=== PATIENT | female | born 1950 | race Caucasian/White ===

== ENCOUNTER 2017-06-21 12:57 | Outpatient (CLI) | payer MEDICARE ==
--- NOTE | 2017-06-21 16:29 | RAD ---
CHEST TWO VIEWS: History: Dyspnea. Comparison: None. FINDINGS: Atherosclerosis of the aorta. Normal cardiac silhouette. The pulmonary vessels and hilum are normal. Costophrenic angles are clear. Lungs are hyperinflated, without consolidation or mass. No pneumothora x or osseous abnormality. IMPRESSION: 1. Hyperinflation. 2. Atherosclerosis. POS: [facility]
== END 2017-06-21 12:58 | disposition home or self-care (01) ==
LOC: RAD 12:57
PROVIDERS: ATTEND Internal Medicine Critical Care Medicine
DX: R06.00 Dyspnea, unspecified (principal); I70.90 Unspecified atherosclerosis; R91.8 Other nonspecific abnormal finding of lung field
CPT/HCPCS: 71046

== ENCOUNTER 2017-07-26 13:04 | Outpatient (CLI) | payer MEDICARE | END 2017-07-26 13:05 | disposition home or self-care (01) | LOC: BICMAMMO 13:04 | PROVIDERS: ATTEND Nurse Practitioner Family | DX: Z12.31 Encounter for screening mammogram for malignant neoplasm of breast (principal); I10 Essential (primary) hypertension | CPT/HCPCS: 77063; 77067 ==

== ENCOUNTER 2019-07-05 12:50 | Inpatient (IN) | payer MEDICARE, OTHER ==
[2019-07-05] MEDS ORDERED: methylPREDNISolone Sod Succ/PF 125 MG/2 ML VIAL ONE (13:33)
[2019-07-05] MEDS ORDERED: Albuterol 200 PUFF (6.7GM INHALER) ONE (13:35)
[2019-07-05 13:50] LABS: Actual Bicarbonate (HCO3a) 30.5 mEq/L (22-28); Analyzer IN Cardio ER; Base Excess (BEa) 0.7 mEq/L (-2.0 to +3.0); Calcium, Ionized 1.23 mmol/L (1.12-1.30); Carboxyhemoglobin (COHb) 2.6 gm% (0.0-3.0); O2 Tension (PaO2), arterial 70.2 mmHg (> 80.0); Potassium - ABG Lab 4.38 mmol/L (3.70-5.30)
[2019-07-05 13:53] LABS: CO2 Tension 72.1 mmHg (35.0-45.0); pH, Arterial 7.24 (7.35-7.45)
[2019-07-05 14:00] LABS: #Basophils 0.1 thou/uL (0.0-0.2); #Eosinphils 0.1 thou/uL (0.0-0.7); #Lymphocytes 1.2 thou/uL (1.20-3.40); #Monocytes 0.7 thou/uL (0.11-0.59); #Neutrophils 7.7 thou/uL (1.40-6.50); %Basophils 0.7 % (0.0-1.0); %Eosinophils 0.8 % (0.0-10.0); %Monocytes 6.8 % (0.0-10.0); %Neutrophils 79.8 % (42.0-75.0); Hemoglobin 15.5 g/dL (12.0-16.0); Mean Corpuscular HGB CONC 30.6 g/dL (32.0-36.0); Mean Corpuscular Hemoglobin 30.7 pg (27.0-31.0); Platelet Count 236 thou/uL (130-400); RBC Distribution Width 13.6 % (11.5-14.5); Red Blood Cell (RBC) Count 5.05 mill/uL (4.20-5.40); White Blood Cell (WBC) Count 9.7 thou/uL (4.8-10.8)
[2019-07-05 14:14] LABS: ALT (SGPT) 21 U/L (8-55); AST (SGOT) 15 U/L (5-34); Albumin 4.1 g/dL (3.4-4.8); Alkaline Phosphatase 140 U/L (40-110); Anion Gap 12 mmol/L (10-20); BUN (Urea Nitrogen) 10 mg/dL (9.8-20.1); Bilirubin, Total 0.6 mg/dL (0.2-1.2); Calc. Creatinine Clearance 0 mL/min (70-130); Calcium 9.5 mg/dL (7.8-10.44); Carbon Dioxide 34 mmol/L (23-31); Chloride 100 mmol/L (98-107); Estimated GFR-MDRD Greater than 90; Globulin 2.7 g/dL (2.4-3.5); Glucose 119 mg/dL (80-115); Protein, Total 6.8 g/dL (6.0-8.3); Sodium 141 mmol/L (136-145)
--- NOTE | 2019-07-05 14:30 | RAD ---
PORTABLE CHEST 1 VIEW: Date: 07/05/2019 Time: 1352 hours HISTORY: Shortness of breath. FINDINGS: Comparison made with exam of 06/21/2017. The heart size is normal. The aorta is tortuous. The lungs are well expanded without lobar consolidat ion, pneumothoraces, nnamdi pulmonary edema, or pleural effusions. IMPRESSION: No acute process. POS: [facility]
[2019-07-05] MEDS ORDERED: Guaifenesin DM 100-10/5 ML UDCUP PO PRN (16:42)
[2019-07-05] MEDS ORDERED: Bisacodyl 10 MG SUPP PR PRN (16:42)
[2019-07-05] MEDS ORDERED: Senokot S 8.6-50 MG TAB PO PRN (16:42)
[2019-07-05] MEDS ORDERED: Ondansetron PF 4 MG/2 ML Vial IVP PRN (16:42)
[2019-07-05] MEDS ORDERED: PROVENTIL INHALER 6.7 G (200 INHALATIONS) INH SCH (16:45)
[2019-07-05 17:04] LABS: Troponin I 0.016 ng/mL (< 0.028)
--- NOTE | 2019-07-05 18:07 | HP ---
REASON FOR ADMISSION: Acute respiratory failure with hypoxia, COPD exacerbation , rule out COVID. HISTORY OF PRESENTING ILLNESS: The patient gives history of developing shortness of breath at home. She states she was short of breath from last 2 days, which has been progressively getting worse. This morning, she got worse and EMS was summoned. Her saturations were 50% on room air. She was given nebulizations and placed on 2 L oxygen by nasal cannula, which promptly brought the saturations up to 93%. Has no fever. The patient states she did not get exposed to anyone with coronavirus. The patient is a bit lethargic, but says she had wheezing, but no altered expectoration of sputum as such. Ms. Marshall also mentions that she had quit smoking, but started back again as her roommate was smoking. PAST MEDICAL AND SURGICAL HISTORY: 1. History of COPD. 2. Hypertension. 3. Appendectomy. 4. Hysterectomy. 5. Depression. 6. Dyslipidemia. 7. Hypothyroidism. CURRENT MEDICATIONS: The patient is on: 1. Norvasc 5 mg daily. 2. Levothyroxine 100 mcg daily. 3. Symbicort inhaler 160/4.5 mcg two puffs twice daily. 4. Lipitor 10 mg daily. 5. Paroxetine 40 mg daily. ALLERGIES: ALLERGIC TO TYLENOL AND CODEINE. SHE IS ALSO ALLERGIC TO [place]. PERSONAL HISTORY: She started smoking 1 pack a day from the last few months, before that had quit per the patient. Does not abuse alcohol or drugs. The patient says she ambulates by herself. FAMILY HISTORY: Mother is still living. Father at the age of 53 years, he had [place]. CODE STATUS: Full. Surrogate decision maker is her daughter, Ms. Shelbi Bennett. REVIEW OF SYSTEMS: CONSTITUTIONAL: Negative for weight loss or gain, ability to conduct usual activities. SKIN: Negative for rash, itching. EYES: Negative for double vision, pain. ENT/MOUTH: Negative for nose bleeding, neck stiffness, pain, tenderness. CARDIOVASCULAR: Negative for palpitations, dyspnea on exertion, orthopnea. RESPIRATORY: Negative for cough, hemoptysis, fever or night sweats. GASTROINTESTINAL: Negative for poor appetite, abdominal pain, heartburn, nausea , vomiting, constipation, or diarrhea. GENITOURINARY: Negative for urgency, frequency, dysuria, nocturia. MUSCULOSKELETAL: Negative for pain, swelling. NEUROLOGIC/PSYCHIATRIC: Negative for anxiety, depression. ALLERGY/IMMUNOLOGIC: Negative for skin rash, bleeding tendency. PHYSICAL EXAMINATION: GENERAL: The patient is a 68-year-old female who is currently lethargic, but responds to verbal questions. VITAL SIGNS: Blood pressure 140/66, pulse 84 per minute, respiratory rate 20 per minute, temperature 98.3 degrees Fahrenheit, saturating 98% on 2 L nasal cannula and was 85% on room air on arrival here. NECK: Supple. No elevated JVP. EYES: Extraocular muscles intact. Pupils reacting to light. ORAL CAVITY: Mucous membranes are dry. No exudates or congestion. CARDIOVASCULAR SYSTEM: S1 and S2 heard regular rhythm. RESPIRATORY SYSTEM: Air entry 1+ bilateral. Scattered wheezes plus bilateral rhonchi plus bilateral. ABDOMEN: Soft bowel sounds heard. No tenderness, rigidity, or guarding. EXTREMITIES: No peripheral edema or calf tenderness. VASCULAR SYSTEM: Peripheral pulses 1+ bilateral. No ischemic ulcerations or gangrene. CENTRAL NERVOUS SYSTEM: No gross focal deficits noted. The patient is lethargic, but responds well to verbal questions. PSYCHIATRIC: No hallucinations or delusions. LABORATORY DATA: Chest x-ray done shows no acute process. There is no infiltrate. EKG done shows normal sinus rhythm at 81 beats per minute. Influenza A and B antigens are negative. Serum bicarb is 34, BUN 10, creatinine 0.6, and serum glucose 119. Liver enzymes, AST and ALT within normal limits, alkaline phosphatase is 140. Troponin-I x2 is negative. BNP is 44. Albumin is 4.1. A blood gas done in the ER shows a pH of 7.24, pCO2 of 72, PO2 of 70. White count of 9, hemoglobin and hematocrit 15 and 50, platelet count is 236, and MCV is 100 with 79% neutrophils, 12% lymphocytes. CLINICAL IMPRESSION AND PLAN: The patient will be admitted to medical floor. She has been tested for COVID-19 due to her respiratory issues. She has not had any fever or exposure to people with quiroz. The patient is lethargic and will obtain more accurate information in the morning when her CO2 levels drop and her mind gets more clarity in the morning. She currently has acute respiratory failure with hypoxia, which is corrected with 2 L nasal cannula oxygen. She has history of chronic obstructive pulmonary disease and has current exacerbation. She had quit smoking and has restarted it. She will be on albuterol inhaler q.4 h., Solu- Medrol 40 mg IV q.6 h., ceftriaxone 2 g daily, and we will continue her Symbicort as before. We will also continue her home dose of Norvasc, Lipitor, paroxetine, and Protonix. We will consult Dr. Ohara who is covering for Dr. Pritchett, her cabin worker. The patient has low probability for COVID, but again the patient is not fully oriented and is not able to answer all questions accurately and will try to ascertain more information in the morning. Job ID: [id number] MTDD
[2019-07-05] MEDS ORDERED: Mometasone 200 MCG/Formoterol 5 MCG 120 PUFF INHALER INH SCH (18:30)
[2019-07-05 18:37] VITALS: BMI 27.1
[2019-07-05] MEDS: methylPREDNISolone Sod Succ 40 MG VIAL IVP SCH ×2 (19:32→23:03)
[2019-07-05] MEDS: cefTRIAXone\\ROCEPHIN 2 GM in Sodium Chloride 0.9% 100 ML IVPB SCH (19:32)
[2019-07-05] MEDS: Albuterol 200 PUFF (6.7GM INHALER) INH SCH ×2 (19:32→23:03)
[2019-07-05] MEDS: Atorvastatin Calcium 10 MG TAB PO SCH (19:33)
[2019-07-06] MEDS: Albuterol 200 PUFF (6.7GM INHALER) INH SCH ×6 (03:05→21:30)
[2019-07-06] MEDS: methylPREDNISolone Sod Succ 40 MG VIAL IVP SCH (05:33)
[2019-07-06] MEDS: Levothyroxine 150 MCG TAB PO SCH (05:33)
[2019-07-06] MEDS: Mometasone 200 MCG/Formoterol 5 MCG 120 PUFF INHALER INH SCH ×2 (05:34→18:59)
[2019-07-06] MEDS ORDERED: Levothyroxine 175 MCG TAB PO SCH (06:00)
[2019-07-06] MEDS: Enoxaparin Sodium 40 MG/0.4 ML SYRINGE SC SCH (08:18)
[2019-07-06] MEDS: PARoxetine 20 MG TAB PO SCH (08:19)
[2019-07-06] MEDS: Amlodipine 10 MG TAB PO SCH (08:19)
[2019-07-06 08:26] LABS: Hemoglobin 15.6 g/dL (12.0-16.0); Mean Corpuscular HGB CONC 29.2 g/dL (32.0-36.0); Mean Corpuscular Hemoglobin 29.6 pg (27.0-31.0); Mean Platelet Volume 9.7 fL (7.4-10.4); Platelet Count 253 thou/uL (130-400); RBC Distribution Width 13.4 % (11.5-14.5); Red Blood Cell (RBC) Count 5.28 mill/uL (4.20-5.40); White Blood Cell (WBC) Count 12.2 thou/uL (4.8-10.8)
[2019-07-06 08:42] LABS: ALT (SGPT) 20 U/L (8-55); AST (SGOT) 10 U/L (5-34); Albumin 3.9 g/dL (3.4-4.8); Alkaline Phosphatase 131 U/L (40-110); Anion Gap 14 mmol/L (10-20); BUN (Urea Nitrogen) 12 mg/dL (9.8-20.1); Bilirubin, Total 0.5 mg/dL (0.2-1.2); Calc. Creatinine Clearance 76 mL/min (70-130); Calcium 9.7 mg/dL (7.8-10.44); Carbon Dioxide 31 mmol/L (23-31); Chloride 97 mmol/L (98-107); Estimated GFR-MDRD 74; Glucose 328 mg/dL (80-115); Potassium 4.7 mmol/L (3.5-5.1); Protein, Total 6.9 g/dL (6.0-8.3); Sodium 137 mmol/L (136-145)
[2019-07-06 10:15] LABS: Band 1 % (5-11); Lymphocytes 6 % (21-51); MDiff Complete? YES; Monocytes 2 % (0-10); Neutrophil 91 % (42-75); Platelet Morphology Comment Appears Adequate; Polychromasia SLIGHT = 2-3 cells (100X) (0-2/hpf); Vacuoles SLIGHT
--- NOTE | 2019-07-06 11:21 | PDOC.HOSPP ---
- Subjective Encounter Date: 07/06/19 Encounter Time: 08:20 Subjective: is sitting on bed, no sob is ambulating in room says she slept good last night - Objective Vital Signs & Weight: Vital Signs (12 hours) Temp Pulse Resp BP BP BP Pulse Ox 07/06/19 08:19 85 135/67 07/06/19 08:00 96.8 F L 94 18 135/67 96 07/06/19 06:07 98.2 F 85 20 152/74 H 95 Weight Weight 153 lb 6 oz I&O: 07/05/19 07/06/19 07/07/19 06:59 06:59 06:59 Intake Total 200 500 Balance 200 500 Result Diagrams: 07/06/19 08:02 07/06/19 08:02 Hospitalist ROS - Medication Medications: Active Medications Generic Name Dose Route Start Last Admin Trade Name Freq PRN Reason Stop Dose Admin Albuterol Sulfate 2 puff 07/05/19 18:30 07/06/19 05:33 Proventil Hfa INH 2 puff [id number] SOBIA Administration Amlodipine Besylate 10 mg 07/06/19 09:00 07/06/19 08:19 Norvasc PO 10 mg DAILY SOBIA Administration Atorvastatin Calcium 10 mg 07/05/19 21:00 07/05/19 19:33 Lipitor PO 10 mg HS SOBIA Administration Enoxaparin Sodium 40 mg 07/06/19 09:00 07/06/19 08:18 Lovenox SC 40 mg 0900 SOBIA Administration Ceftriaxone Sodium 2 gm/ 100 mls @ 200 mls/hr 07/05/19 16:45 07/05/19 19:32 Sodium Chloride IVPB 100 mls Q24HR SOBIA Administration Levothyroxine Sodium 150 mcg 07/06/19 06:00 07/06/19 05:33 Synthroid PO 150 mcg 0600 SOBIA Administration Methylprednisolone Sodium Succinate 40 mg 07/05/19 18:00 07/06/19 05:33 Solu-Medrol IVP 40 mg Q6HR SOBIA Administration Mometasone Furoate/Formoterol Fumar 2 puff 07/06/19 06:30 07/06/19 05:34 Dulera 200 Mcg/5 Mcg Inhaler INH 2 inhaler BID-RT SOBIA Administration Pantoprazole Sodium 40 mg 07/06/19 09:00 07/06/19 08:19 Protonix PO 40 mg DAILY SOBIA Administration Paroxetine HCl 40 mg 07/06/19 09:00 07/06/19 08:19 Paxil PO 40 mg DAILY SOBIA Administration - Exam General Appearance: awake alert Eye: PERRL, anicteric sclera ENT: no oropharyngeal lesions, moist mucosa Neck: supple, no JVD Heart: RRR, no murmur Respiratory: no wheezes, no rales, rhonchi Gastrointestinal: soft, non-tender, non-distended, normal bowel sounds Extremities: no cyanosis, no edema Neurological: cranial nerve grossly intact, no focal deficits Psychiatric: normal affect, A&O x 3 Hosp A/P (1) COPD exacerbation Code(s): J44.1 - CHRONIC OBSTRUCTIVE PULMONARY DISEASE W (ACUTE) EXACERBATION Status: Acute (2) Acute respiratory failure with hypoxia Code(s): J96.01 - ACUTE RESPIRATORY FAILURE WITH HYPOXIA Status: Acute (3) DM type 2 (diabetes mellitus, type 2) Status: Chronic Qualifiers: Diabetes mellitus exterminator helper insulin use: without half-way use (4) HTN (hypertension) Code(s): I10 - ESSENTIAL (PRIMARY) HYPERTENSION Status: Chronic Qualifiers: Hypertension type: essential hypertension Qualified Code(s): I10 - Essential (primary) hypertension (5) Dyslipidemia Code(s): E78.5 - HYPERLIPIDEMIA, UNSPECIFIED Status: Chronic (6) Hypothyroidism Code(s): E03.9 - HYPOTHYROIDISM, UNSPECIFIED Status: Chronic Qualifiers: Hypothyroidism type: unspecified Qualified Code(s): E03.9 - Hypothyroidism , unspecified - Plan patient says she was in isolation with a friend of hers from may 29 except for yesterday when she went to drive through pharmacy no exposures to covid 19 on prednsione, alb inh, ceftriaxone add metformin tid continue synthroid, lipitor and norvasc hemostable unlikely to have covid 19, await results
[2019-07-06] MEDS ORDERED: Dextrose 5% in Water 1,000 ML IV PRN (11:22)
[2019-07-06] MEDS ORDERED: HumaLOG 300 UNITS/3 ML VIAL SC PRN ×2 (11:22→19:50)
[2019-07-06] MEDS ORDERED: Dextrose 50% Abboject 50 ML SYRINGE SLOW IVP PRN (11:22)
--- NOTE | 2019-07-06 11:29 | CON ---
DATE OF CONSULTATION: 07/06/2019 This is 50 minutes of time, of that time, greater than 50% spent with the patient and/or the patient's unit in the hospital. REASON FOR CONSULTATION: COPD exacerbation. HISTORY OF PRESENT ILLNESS: The patient is a 68-year-old female, who was admitted yesterday because of hypoxemia. She has been put on rule out COVID status, although she has had no fever, cough, or congestion. She does smoke a lot at home. She has a history of COPD and is followed by Dr. Pritchett. She had been on oxygen in the past, but has not been wearing it lately. PAST MEDICAL HISTORY: 1. Chronic obstructive pulmonary disease. 2. Hypertension. 3. Hypothyroidism. 4. Hyperlipidemia. 5. Depression. PAST SURGICAL HISTORY: Hysterectomy and appendectomy. MEDICATIONS: Prior to admission, 1. Symbicort. 2. Levothyroxine. 3. Norvasc. 4. Lipitor. 5. Paroxetine. ALLERGIES: TYLENOL, CODEINE. SOCIAL HISTORY: Smokes one pack per day. FAMILY MEDICAL HISTORY: Unremarkable except for heart disease. REVIEW OF SYSTEMS: Twelve-point review of systems is otherwise negative. PHYSICAL EXAMINATION: VITAL SIGNS: Temperature 98.2, pulse 85, respirations 20, sat 95% on 2 L, blood pressure 150/74. HEENT: Unremarkable. NECK: No adenopathy or JVD. CHEST: No wheezing or rhonchi. CARDIAC: S1, S2. Regular. ABDOMEN: Soft. EXTREMITIES: No edema. DIAGNOSTIC DATA: Chest x-ray shows no mass, effusion, or infiltrate. LABORATORY DATA: White blood cell count 12, hematocrit 53.6, and platelet count 253. Sodium 137, potassium 4.7, chloride 97, CO2 of 31, BUN 12, creatinine 0.7, glucose 328. ASSESSMENT: 1. Chronic obstructive pulmonary disease with exacerbation. 2. Tobacco abuse. 3. Doubt COVID pneumonia. PLAN: This patient hopefully will rule out as soon as possible. She would benefit from nebulization therapy far more than the metered-dose inhaler that she is currently taking. Agree with the IV steroids. I think she would be a candidate to go home on home oxygen as soon as tomorrow if everything else turns out okay. Job ID: [id number]
[2019-07-06] MEDS: cefTRIAXone\\ROCEPHIN 2 GM in Sodium Chloride 0.9% 100 ML IVPB SCH (16:23)
[2019-07-06] MEDS: metFORMIN 500 MG TAB PO SCH ×2 (16:23→19:24)
[2019-07-06] MEDS: Atorvastatin Calcium 10 MG TAB PO SCH (19:24)
[2019-07-07] MEDS: Albuterol 200 PUFF (6.7GM INHALER) INH SCH ×6 (01:44→21:30)
[2019-07-07] MEDS: Levothyroxine 150 MCG TAB PO SCH (05:27)
[2019-07-07] MEDS: Mometasone 200 MCG/Formoterol 5 MCG 120 PUFF INHALER INH SCH ×2 (05:46→18:04)
[2019-07-07] MEDS: metFORMIN 500 MG TAB PO SCH ×4 (07:47→20:09)
[2019-07-07] MEDS: predniSONE 20 MG TAB PO SCH (07:47)
[2019-07-07] MEDS: PARoxetine 20 MG TAB PO SCH (07:47)
[2019-07-07] MEDS: Amlodipine 10 MG TAB PO SCH (07:48)
[2019-07-07] MEDS: Enoxaparin Sodium 40 MG/0.4 ML SYRINGE SC SCH (07:49)
[2019-07-07 08:14] LABS: ALT (SGPT) 34 U/L (8-55); AST (SGOT) 26 U/L (5-34); Albumin 3.6 g/dL (3.4-4.8); Alkaline Phosphatase 107 U/L (40-110); Anion Gap 10 mmol/L (10-20); BUN (Urea Nitrogen) 13 mg/dL (9.8-20.1); Bilirubin, Total 0.4 mg/dL (0.2-1.2); Calc. Creatinine Clearance 87 mL/min (70-130); Calcium 9.2 mg/dL (7.8-10.44); Carbon Dioxide 35 mmol/L (23-31); Chloride 99 mmol/L (98-107); Estimated GFR-MDRD 87; Globulin 2.8 g/dL (2.4-3.5); Glucose 81 mg/dL (80-115); Potassium 4.2 mmol/L (3.5-5.1); Protein, Total 6.4 g/dL (6.0-8.3); Sodium 140 mmol/L (136-145)
--- NOTE | 2019-07-07 11:29 | PDOC.HOSPP ---
- Subjective Encounter Date: 07/07/19 Encounter Time: 07:15 Subjective: no trouble breathing is ambulating in room no chest pain or palp - Objective Vital Signs & Weight: Vital Signs (12 hours) Temp Pulse Resp BP BP Pulse Ox 07/07/19 08:00 98.2 F 78 16 132/69 92 L 07/07/19 07:48 78 158/68 H 07/07/19 01:44 78 96 Weight Weight 153 lb 6 oz I&O: 07/06/19 07/07/19 07/08/19 06:59 06:59 06:59 Intake Total 200 2400 Balance 200 2400 Result Diagrams: 07/06/19 08:02 07/07/19 07:37 Additional Labs: Accuchecks 07/07/19 07/06/19 07/06/19 10:23 19:37 16:49 POC Glucose 140 H 230 H 168 H Hospitalist ROS - Medication Medications: Active Medications Generic Name Dose Route Start Last Admin Trade Name Freq PRN Reason Stop Dose Admin Albuterol Sulfate 2 puff 07/05/19 18:30 07/07/19 10:39 Proventil Hfa INH 2 puff [id number] SOBIA Administration Amlodipine Besylate 10 mg 07/06/19 09:00 07/07/19 07:48 Norvasc PO 10 mg DAILY SOBIA Administration Atorvastatin Calcium 10 mg 07/05/19 21:00 07/06/19 19:24 Lipitor PO 10 mg HS SOBIA Administration Enoxaparin Sodium 40 mg 07/06/19 09:00 07/07/19 07:49 Lovenox SC 40 mg 0900 SOBIA Administration Ceftriaxone Sodium 2 gm/ 100 mls @ 200 mls/hr 07/05/19 16:45 07/06/19 16:23 Sodium Chloride IVPB 100 mls Q24HR SOBIA Administration Insulin Human Lispro 0 units 07/06/19 11:22 07/06/19 17:02 Humalog SC 3 unit .AGGRESSIVE SLIDING PRN Administration Aggressive Correctional Scale Insulin Human Lispro 0 units 07/06/19 19:50 07/06/19 21:31 Humalog SC 2 units .BEDTIME SLIDING SC PRN Administration Bedtime Correctional Scale Levothyroxine Sodium 150 mcg 07/06/19 06:00 07/07/19 05:27 Synthroid PO 150 mcg 0600 SOBIA Administration Metformin HCl 500 mg 07/06/19 15:00 07/07/19 07:47 Glucophage PO 500 mg TID SOBIA Administration Mometasone Furoate/Formoterol Fumar 2 puff 07/06/19 06:30 07/07/19 05:46 Dulera 200 Mcg/5 Mcg Inhaler INH 2 inhaler BID-RT SOBIA Administration Pantoprazole Sodium 40 mg 07/06/19 09:00 07/07/19 07:48 Protonix PO 40 mg DAILY SOBIA Administration Paroxetine HCl 40 mg 07/06/19 09:00 07/07/19 07:47 Paxil PO 40 mg DAILY SOBIA Administration Prednisone 20 mg 07/07/19 08:00 07/07/19 07:47 Prednisone PO 20 mg QAM-WM SOBIA Administration - Exam General Appearance: awake alert Eye: PERRL, anicteric sclera ENT: no oropharyngeal lesions, moist mucosa Neck: symmetric, no JVD Heart: RRR, no murmur Respiratory: no wheezes, no rales, rhonchi Gastrointestinal: soft, non-tender, non-distended, normal bowel sounds Extremities: no cyanosis, no edema Neurological: cranial nerve grossly intact, no focal deficits Psychiatric: normal affect, A&O x 3 Hosp A/P (1) COPD exacerbation Code(s): J44.1 - CHRONIC OBSTRUCTIVE PULMONARY DISEASE W (ACUTE) EXACERBATION Status: Acute (2) Acute respiratory failure with hypoxia Code(s): J96.01 - ACUTE RESPIRATORY FAILURE WITH HYPOXIA Status: Acute (3) DM type 2 (diabetes mellitus, type 2) Status: Chronic Qualifiers: Diabetes mellitus chcf insulin use: without tank terminal gauger use (4) HTN (hypertension) Code(s): I10 - ESSENTIAL (PRIMARY) HYPERTENSION Status: Chronic Qualifiers: Hypertension type: essential hypertension Qualified Code(s): I10 - Essential (primary) hypertension (5) Dyslipidemia Code(s): E78.5 - HYPERLIPIDEMIA, UNSPECIFIED Status: Chronic (6) Hypothyroidism Code(s): E03.9 - HYPOTHYROIDISM, UNSPECIFIED Status: Chronic Qualifiers: Hypothyroidism type: unspecified Qualified Code(s): E03.9 - Hypothyroidism , unspecified - Plan patient says she was in isolation with a friend of hers from may 29 except for yesterday when she went to drive through pharmacy no exposures to covid 19 on prednsione, alb inh, ceftriaxone add metformin tid continue synthroid, lipitor and norvasc hemostable unlikely to have covid 19, await results gave full updates to daughter over phone. Likely dc plan in am, will need home oxygen if she qualifies (ambulatory sp02 in am)
--- NOTE | 2019-07-07 11:30 | PRG ---
DATE OF SERVICE: 07/07/2019 SUBJECTIVE: The patient is apparently doing well, had no issues overnight. We are still pending COVID-19 serology. OBJECTIVE: VITAL SIGNS: On exam; temperature 98.2, pulse 70, respirations 16, O2 saturation 92% on 2 L, and blood pressure 132/69. According to nursing staff, she has had no change in her physical exam. LABORATORY DATA: Sodium 140, potassium 4.2, BUN 13, creatinine 0.6, and glucose 81. ASSESSMENT: Chronic obstructive pulmonary disease with exacerbation. PLAN: She is continuing antibiotics, metered-dose inhaler, and steroids. I think she could probably go home, if she rules out. Job ID: [id number]
[2019-07-07] MEDS: cefTRIAXone\\ROCEPHIN 2 GM in Sodium Chloride 0.9% 100 ML IVPB SCH (17:02)
[2019-07-07] MEDS: Atorvastatin Calcium 10 MG TAB PO SCH (19:47)
[2019-07-08] MEDS: Albuterol 200 PUFF (6.7GM INHALER) INH SCH ×4 (01:38→15:25)
[2019-07-08] MEDS: Levothyroxine 150 MCG TAB PO SCH (05:38)
[2019-07-08] MEDS: Mometasone 200 MCG/Formoterol 5 MCG 120 PUFF INHALER INH SCH (05:38)
[2019-07-08 07:06] LABS: ALT (SGPT) 31 U/L (8-55); AST (SGOT) 17 U/L (5-34); Albumin 3.6 g/dL (3.4-4.8); Alkaline Phosphatase 104 U/L (40-110); BUN (Urea Nitrogen) 14 mg/dL (9.8-20.1); Bilirubin, Total 0.5 mg/dL (0.2-1.2); Calc. Creatinine Clearance 87 mL/min (70-130); Calcium 9.5 mg/dL (7.8-10.44); Estimated GFR-MDRD 87; Globulin 2.8 g/dL (2.4-3.5); Glucose 75 mg/dL (80-115); Protein, Total 6.4 g/dL (6.0-8.3)
[2019-07-08 07:15] LABS: Anion Gap 17 mmol/L (10-20); Carbon Dioxide 33 mmol/L (23-31); Chloride 96 mmol/L (98-107); Potassium 4.5 mmol/L (3.5-5.1); Sodium 141 mmol/L (136-145)
[2019-07-08 07:43] VITALS: BP 134/72; TEMP 98.5
[2019-07-08] MEDS: PARoxetine 20 MG TAB PO SCH (08:35)
[2019-07-08] MEDS: predniSONE 20 MG TAB PO SCH (08:37)
[2019-07-08] MEDS: metFORMIN 500 MG TAB PO SCH ×2 (08:37→15:49)
[2019-07-08] MEDS: Enoxaparin Sodium 40 MG/0.4 ML SYRINGE SC SCH (08:37)
[2019-07-08] MEDS: Amlodipine 10 MG TAB PO SCH (08:37)
--- NOTE | 2019-07-08 15:33 | PDOC.HOSPP ---
- Subjective Encounter Date: 07/08/19 Encounter Time: 15:31 Subjective: patient says she was in isolation with a friend of hers from may 29 except for yesterday when she went to drive through pharmacy no exposures to covid 19 on prednsione, alb inh, ceftriaxone add metformin tid continue synthroid, lipitor and norvasc hemostable unlikely to have covid 19, await results gave full updates to daughter over phone. Likely dc plan in am, qualifies for Oxygen - Objective Vital Signs & Weight: Vital Signs (12 hours) Temp Pulse Resp BP BP Pulse Ox 07/08/19 08:37 82 134/72 07/08/19 08:00 92 L 07/08/19 07:41 98.5 F 82 22 H 134/72 92 L Weight Weight 153 lb 6 oz I&O: 07/07/19 07/08/19 07/09/19 06:59 06:59 06:59 Intake Total 2400 Balance 2400 Result Diagrams: 07/06/19 08:02 07/08/19 06:02 Additional Labs: Accuchecks 07/08/19 07/07/19 05:48 19:58 POC Glucose 93 95 Hospitalist ROS - Review of Systems Other: doing well on oxygen - Medication Medications: Active Medications Generic Name Dose Route Start Last Admin Trade Name Freq PRN Reason Stop Dose Admin Albuterol Sulfate 2 puff 07/05/19 18:30 07/08/19 15:25 Proventil Hfa INH 2 puff [id number] SOBIA Administration Amlodipine Besylate 10 mg 07/06/19 09:00 07/08/19 08:37 Norvasc PO 10 mg DAILY SOBIA Administration Atorvastatin Calcium 10 mg 07/05/19 21:00 07/07/19 19:47 Lipitor PO 10 mg HS SOBIA Administration Enoxaparin Sodium 40 mg 07/06/19 09:00 07/08/19 08:37 Lovenox SC 40 mg 0900 SOBIA Administration Ceftriaxone Sodium 2 gm/ 100 mls @ 200 mls/hr 07/05/19 16:45 07/07/19 17:02 Sodium Chloride IVPB 100 mls Q24HR SOBIA Administration Insulin Human Lispro 0 units 07/06/19 11:22 07/06/19 17:02 Humalog SC 3 unit .AGGRESSIVE SLIDING PRN Administration Aggressive Correctional Scale Insulin Human Lispro 0 units 07/06/19 19:50 07/06/19 21:31 Humalog SC 2 units .BEDTIME SLIDING SC PRN Administration Bedtime Correctional Scale Levothyroxine Sodium 150 mcg 07/06/19 06:00 07/08/19 05:38 Synthroid PO 150 mcg 0600 SOBIA Administration Metformin HCl 500 mg 07/06/19 15:00 07/08/19 08:37 Glucophage PO 500 mg TID SOBIA Administration Mometasone Furoate/Formoterol Fumar 2 puff 07/06/19 06:30 07/08/19 05:38 Dulera 200 Mcg/5 Mcg Inhaler INH 2 inhaler BID-RT SOBIA Administration Pantoprazole Sodium 40 mg 07/06/19 09:00 07/08/19 08:37 Protonix PO 40 mg DAILY SOBIA Administration Paroxetine HCl 40 mg 07/06/19 09:00 07/08/19 08:35 Paxil PO 40 mg DAILY SOBIA Administration Prednisone 20 mg 07/07/19 08:00 07/08/19 08:37 Prednisone PO 20 mg QAM-WM SOBIA Administration - Exam General Appearance: awake alert Eye: PERRL, anicteric sclera ENT: normocephalic atraumatic, no oropharyngeal lesions, moist mucosa Neck: supple, symmetric, no JVD, no thyromegaly Heart: RRR, no murmur, no gallops, no rubs Respiratory: CTAB, no wheezes, no rales Respiratory - other findings: reduced air entry Extremities: no cyanosis, no edema Hosp A/P (1) Acute respiratory failure with hypoxia Code(s): J96.01 - ACUTE RESPIRATORY FAILURE WITH HYPOXIA Status: Acute (2) COPD exacerbation Code(s): J44.1 - CHRONIC OBSTRUCTIVE PULMONARY DISEASE W (ACUTE) EXACERBATION Status: Acute (3) DM type 2 (diabetes mellitus, type 2) Status: Chronic Qualifiers: Diabetes mellitus fpc insulin use: without neuropsychiatrist use (4) Dyslipidemia Code(s): E78.5 - HYPERLIPIDEMIA, UNSPECIFIED Status: Chronic (5) HTN (hypertension) Code(s): I10 - ESSENTIAL (PRIMARY) HYPERTENSION Status: Chronic Qualifiers: Hypertension type: essential hypertension Qualified Code(s): I10 - Essential (primary) hypertension (6) Hypothyroidism Code(s): E03.9 - HYPOTHYROIDISM, UNSPECIFIED Status: Chronic Qualifiers: Hypothyroidism type: unspecified Qualified Code(s): E03.9 - Hypothyroidism , unspecified - Plan copd exacerbation, low suspicion for covid. DC with home oxygen
[2019-07-08] MEDS: cefTRIAXone\\ROCEPHIN 2 GM in Sodium Chloride 0.9% 100 ML IVPB SCH (17:00)
--- NOTE | 2019-07-08 20:32 | PRG ---
DATE OF SERVICE: 07/08/2019 SUBJECTIVE: She states she feels like she is ready to go home. Unfortunately, Ms. Marshall is still smoking. She has a nebulizer at home, but she does not use it unless she is sick. Her O2 saturation was checked on room air oxygen. OBJECTIVE: LUNGS: Clear today. HEART: Regular rhythm. ABDOMEN: Soft. IMPRESSION: 1. Chronic obstructive pulmonary disease exacerbation. 2. Ongoing tobacco use. 3. Obesity and deconditioning. PLAN: Discharge home with slow steroid taper, nebulized treatments, oxygen. Follow up in 4 to 6 weeks. She has been encouraged to be compliant with smoking cessation. Job ID: [id number]
--- NOTE | 2019-07-10 10:30 | DIS ---
DATE OF ADMISSION: 07/05/2019 DATE OF DISCHARGE: 07/08/2019 ADMISSION DIAGNOSES: 1. Acute respiratory failure with hypoxemia. 2. Chronic obstructive pulmonary disease exacerbation. 3. Diabetes mellitus. 4. Dyslipidemia. 5. Hypertension. 6. Hypothyroidism. DISCHARGE DIAGNOSES: 1. Acute respiratory failure with hypoxemia. 2. Chronic obstructive pulmonary disease exacerbation. 3. Diabetes mellitus. 4. Dyslipidemia. 5. Hypertension. 6. Hypothyroidism. HISTORY OF PRESENT ILLNESS: This is a 68-year-old female with history of COPD, chronically on oxygen, comes in with COPD exacerbation . COVID negative. The patient was treated with IV fluids, nebulizers, on IV antibiotics and steroids. The patient did okay and she was discharged for outpatient followup. Unfortunately, the patient continues to smoke and not much can be done to her. DISCHARGE INSTRUCTIONS: 1. Stop smoking. 2. Heart healthy diet. 3. Activity, as tolerated. 4. Please follow up with Dr. Pritchett in 2 to 3 weeks. Job ID: [id number] MTDD
--- NOTE | 2019-07-12 14:49 | EKG ---
Test Reason : Blood Pressure : / mmHG Vent. Rate : 081 BPM Atrial Rate : 081 BPM P-R Int : 154 ms QRS Dur : 084 ms QT Int : 376 ms P-R-T Axes : 075 086 074 degrees QTc Int : 436 ms Normal sinus rhythm Possible Left atrial enlargement Anterior infarct , age undetermined Abnormal ECG Confirmed by CARTER HERNANDEZ ([id number]), video editor ELODIA NICHOLS ([id number]) on 07/12/2019 2:48:54 PM Referred By: Confirmed By:CARTER HERNANDEZ
== END 2019-07-08 17:28 | disposition home or self-care (01) | DRG 189 ==
LOC: ERS 12:50 → T4-A 15:13
PROVIDERS: ADMIT Internal Medicine; ATTEND Internal Medicine
PROC: 8E0ZXY6 Isolation (ICD-10-PCS; principal; 2019-07-05)
DX: J96.01 Acute respiratory failure with hypoxia (principal); J44.1 Chronic obstructive pulmonary disease with (acute) exacerbation; E87.2 Acidosis; E66.9 Obesity, unspecified; R53.81 Other malaise; E11.9 Type 2 diabetes mellitus without complications; E78.5 Hyperlipidemia, unspecified; I10 Essential (primary) hypertension; E03.9 Hypothyroidism, unspecified; F32.9 Major depressive disorder, single episode, unspecified; Z79.4 Long term (current) use of insulin; Z90.49 Acquired absence of other specified parts of digestive tract; Z90.710 Acquired absence of both cervix and uterus; Z87.891 Personal history of nicotine dependence; Z68.27 Body mass index [BMI] 27.0-27.9, adult; Z20.828 Contact with and (suspected) exposure to other viral communicable diseases
CPT/HCPCS: 36415; 36416; 71045; 80053; 82805; 83880; 84484; 85025; 87040; 87635; 87804; 93005; 94664; 96374; J0696; J1650; J2920; J2930; J3490; J7512; U0003

== ENCOUNTER 2019-11-22 11:15 | Outpatient (CLI) | payer MEDICARE ==
--- NOTE | 2019-11-22 11:30 | RAD ---
EXAM: Chest 2 views: HISTORY: Dyspnea COMPARISON: 10/24/2019 FINDINGS: There is a normal-sized cardiomediastinal silhouette. Atherosclerotic calcifications are seen in the aorta. Biapical pleural thickening is seen. A nodularity projecting over the left lower lobe likely represents a nipple shadow. No acute osseous abnormality. IMPRESSION: No evidence of acute cardiopulmonary disease
== END 2019-11-22 11:16 | disposition home or self-care (01) ==
LOC: BICRAD 11:15
PROVIDERS: ATTEND Internal Medicine Critical Care Medicine
DX: R06.00 Dyspnea, unspecified (principal)
CPT/HCPCS: 71046

== ENCOUNTER 2020-11-10 11:50 | Outpatient (CLI) | payer MEDICARE | END 2020-11-10 11:51 | disposition home or self-care (01) | LOC: BICRAD 11:50 | PROVIDERS: ATTEND Internal Medicine Critical Care Medicine | DX: R06.00 Dyspnea, unspecified (principal) | CPT/HCPCS: 71046 ==

== ENCOUNTER 2022-11-30 10:42 | Outpatient (CLI) | payer MEDICARE | END 2022-11-30 10:43 | disposition home or self-care (01) | LOC: RAD 10:42 | PROVIDERS: ATTEND Internal Medicine Critical Care Medicine | DX: R06.00 Dyspnea, unspecified (principal) | CPT/HCPCS: 71046 ==

== ENCOUNTER 2024-12-30 14:46 | Outpatient (CLI) | payer MEDICARE | END 2024-12-30 14:47 | disposition home or self-care (01) | LOC: RAD 14:46 | PROVIDERS: ATTEND Internal Medicine Critical Care Medicine | DX: R06.00 Dyspnea, unspecified (principal) | CPT/HCPCS: 71046 ==